=== PATIENT | male | born 1945 | race Caucasian/White ===

== ENCOUNTER 2019-09-24 19:05 | Inpatient (IN) | payer MEDICARE ==
[~2019-09-24] VITALS: Ht 182.9 cm; Wt 122.5 kg
--- NOTE | 2019-09-24 19:25 | NUR ---
pt BIB [facility] ambulance[facility] A/O x3. able to speak in complete sentences. follows command no s/s of distress respiration even and unlanored no cardiovascular distress noted SR up for safety. bed locked, lowest position. instructed to pt to call nurse for assistance monitored accordingly Will continue to monitor
--- NOTE | 2019-09-24 19:25 | NUR ---
Dr. Feldman at bedside for MSE
[2019-09-24] MEDS ORDERED: IV NORMAL SALINE 1000 ML BAG IV ONE (19:30)
[2019-09-24] MEDS ORDERED: FURO-151 PO (19:33)
[2019-09-24] MEDS ORDERED: METF-440 PO (19:33)
[2019-09-24] MEDS ORDERED: [UNRECOGNIZED DRUG - CODE] PO (19:33)
[2019-09-24] MEDS ORDERED: [UNRECOGNIZED DRUG - REMARK] (19:33)
[2019-09-24 20:04] LABS: BASOPHILS # (AUTO) 0.1 K/uL (0.0-8.0); BASOPHILS % (AUTO) 0.7 % (0.0-2.0); EOSINOPHILS # (AUTO) 0.1 K/uL (0.0-0.7); EOSINOPHILS % (AUTO) 1.6 % (0.0-7.0); HEMATOCRIT 39.2 % (36.7-47.1); HEMOGLOBIN 13.1 g/dL (12.5-16.3); LYMPHOCYTES # (AUTO) 1.3 K/uL (20.0-40.0); LYMPHOCYTES % (AUTO) 16.2 % (20.5-51.5); MEAN CORPUSCULAR HEMOGLOBIN 32.3 uug (23.8-33.4); MEAN CORPUSCULAR HGB CONC 34 g/dL (32.5-36.3); MEAN CORPUSCULAR VOLUME 96.6 fL (73.0-96.2); MONOCYTES # (AUTO) 0.8 K/uL (2.0-10.0); MONOCYTES % (AUTO) 9.8 % (0.0-11.0); NEUTROPHILS # (AUTO) 5.9 K/uL (1.8-8.9); NEUTROPHILS % (AUTO) 71.7 % (38.5-71.5); PLATELET COUNT (AUTO) 162 K/uL (152-348); RED BLOOD CELL COUNT(AUTO) 4.06 MIL/uL (4.06-5.63); WHITE BLOOD COUNT (AUTO) 8.3 K/uL (3.6-10.2)
[2019-09-24 20:13] LABS: CREATININE 0.8 mg/dL (0.6-1.3); POTASSIUM 3.5 mmol/L (3.5-5.1)
[2019-09-24 20:17] LABS: BILIRUBIN,DIRECT 0.5 mg/dL (0.0-0.2); BILIRUBIN,TOTAL 1.4 mg/dL (0.2-1.0); TOTAL PROTEIN, SERUM 5.9 g/dL (6.4-8.2)
--- NOTE | 2019-09-24 20:29 | NUR ---
pt out of ER for CT
--- NOTE | 2019-09-24 20:44 | NUR ---
pt back in ER from CT
--- NOTE | 2019-09-24 21:13 | NUR ---
Dr. Feldman on the phone with Dr. Diaz
[2019-09-24] MEDS ORDERED: DEXTROSE 50% 50 ML DISP.SYRIN IV PRN (21:15)
[2019-09-24] MEDS ORDERED: ONDANSETRON 4 MG/2 ML VIAL IV PRN (21:15)
[2019-09-24] MEDS ORDERED: MAGNESIUM HYDROXIDE 30 ML LIQUID UDC PO PRN (21:15)
[2019-09-24] MEDS ORDERED: ACETAMINOPHEN 325 MG TABLET PO PRN (21:15)
--- NOTE | 2019-09-24 21:20 | NUR ---
attempted to call for bed. no beds available. RN avionics shop supervisor aware.
--- NOTE | 2019-09-24 21:55 | NUR ---
Report given to ADELINA Gallardo
[2019-09-24] MEDS ORDERED: PIPERACILLIN SODIUM/TAZOBACTAM 3.375 G in IV DEXTROSE 5% 50 ML IV SCH (22:00)
[2019-09-24] MEDS ORDERED: VANCOMYCIN IV 2,000 MG in IV DEXTROSE 5% 500 ML IV ONE (22:15)
--- NOTE | 2019-09-24 22:51 | NUR ---
Pt. admitted to Tele Room 329B , under care of Dr. Diaz Belongs List completed. All belongings with patient. No s/s of distress
--- NOTE | 2019-09-24 23:20 | NUR ---
Admitted patient from ER with admitting diagnosis: abdominal pain and ascites. Patient arrived at 2245 through hospital bed. No SOB or distress was noted. Condition fair. No complain of pain at this time. VS: BP:122/81, VA:113, T:98.3, RR:19, O2 SAT:95% RA. Physical assessment done. Rt below the knee amputation. Non-pitting edema on right hand, left leg and foot, and scrotum. safety measures maintain, fall prevention observed. Skin assessed. open wound and skin tears noted, pictures taken, and put in the chart. placed Wound care consult. Bed in locked and low position, side rails up x2 for safety, bed alarm on. Call light and frequently using items within reach. Continue to monitor.
[2019-09-24] MEDS ORDERED: VANCOMYCIN 1000 MG VIAL ONE (23:32)
[2019-09-24] MEDS ORDERED: PIPERACILLIN/TAZOBACTAM/D5W 100 ML IV ONE (23:32)
[2019-09-24] MEDS: PIPERACILLIN SODIUM/TAZOBACTAM 3.375 G in IV DEXTROSE 5% 50 ML IV SCH (23:43)
[2019-09-25] MEDS: PIPERACILLIN SODIUM/TAZOBACTAM 3.375 G in IV DEXTROSE 5% 50 ML IV SCH (05:12)
[2019-09-25] MEDS: PANTOPRAZOLE SODIUM 40 MG TABLET.DR PO SCH (06:30)
[2019-09-25] MEDS: BLOOD SUGAR DIAGNOSTIC 1 EACH STRIP VI SCH ×4 (06:31→20:47)
[2019-09-25 08:19] VITALS: BP 135/102
[2019-09-25] MEDS ORDERED: FUROSEMIDE 20 MG/2 ML VIAL IV ONE (09:00)
--- NOTE | 2019-09-25 09:24 | NUR ---
Endorsing care to Hailey SAHU. Addendum: 09/25/19 at 0901 by JOSE ALBERTO WASHINGTON RN Patient transferred to 2nd floor for covid r/o
[2019-09-25] MEDS ORDERED: BISACODYL 10 MG SUPP.RECT RC ONE (09:30)
--- NOTE | 2019-09-25 09:30 | NUR ---
Received report from pooja SAHU. Patient is awake, alert and verbally responsive, hard of hearing. No signs of distress noted. No SOB. saturating 96% on Room Air. Afebrile. No complain of pain or discomfort. On contact and droplet Isolation for r/o covid 19. proper PPE strictly Observed. kept clean and comfortable. Will continue to monitor
[2019-09-25 11:00] VITALS: BP 97/69
--- NOTE | 2019-09-25 11:30 | NUR ---
Patient with Order for Guided Ultrasound paracentesis, consent signed by Patient.
[2019-09-25] MEDS: INSULIN REGULAR, HUMAN 300 UNIT/3 ML VIAL SQ PRN ×3 (11:52→22:12)
--- NOTE | 2019-09-25 12:01 | NUR ---
WOUND CARE CONSULT: REVIEWED CHART, ADMISSION DOCUMENTATION AND PHOTOS WHICH SHOW EDEMA (PROFOUND EDEMA TO SCROTUM), DRY THICKENED SKIN TO LOWER EXTREMITIES AND NECROTIC SACRAL WOUND, ALL PRESENT ON ADMISSION. RECOMMEND SURGICAL CONSULT. DR DUNCAN NOTIFIED OF CONSULT REQUEST. FIRST STEP LOW AIRLOSS MATTRESS ON ORDER. SKIN PROTECTION RECOMMENDATIONS DISCUSSED WITH NURSING STAFF. SACRAL WOUND PHOTO DISCUSSED WITH IN CASE MGMT. MD IN AGREEMENT WITH PLAN OF CARE. CURRENT ROXANA SCORE IS 12.
[2019-09-25] MEDS ORDERED: Z GUARD REMEDY PASTE 57 GM TUBE TOP PRN (12:15)
[2019-09-25 13:21] LABS: BASOPHILS # (AUTO) 0.1 K/uL (0.0-8.0); BASOPHILS % (AUTO) 0.8 % (0.0-2.0); EOSINOPHILS # (AUTO) 0.1 K/uL (0.0-0.7); EOSINOPHILS % (AUTO) 0.9 % (0.0-7.0); HEMATOCRIT 37.8 % (36.7-47.1); HEMOGLOBIN 12.9 g/dL (12.5-16.3); LYMPHOCYTES # (AUTO) 0.9 K/uL (20.0-40.0); LYMPHOCYTES % (AUTO) 10.5 % (20.5-51.5); MEAN CORPUSCULAR HGB CONC 34 g/dL (32.5-36.3); MEAN CORPUSCULAR VOLUME 96.3 fL (73.0-96.2); MONOCYTES # (AUTO) 0.7 K/uL (2.0-10.0); MONOCYTES % (AUTO) 7.9 % (0.0-11.0); NEUTROPHILS # (AUTO) 6.9 K/uL (1.8-8.9); NEUTROPHILS % (AUTO) 79.9 % (38.5-71.5); PLATELET COUNT (AUTO) 150 K/uL (152-348); RED BLOOD CELL COUNT(AUTO) 3.93 MIL/uL (4.06-5.63); WHITE BLOOD COUNT (AUTO) 8.6 K/uL (3.6-10.2)
[2019-09-25] MEDS: VANCOMYCIN IV 2,000 MG in IV DEXTROSE 5% 500 ML IV SCH (13:31)
--- NOTE | 2019-09-25 13:36 | NUR ---
Clinical Pharmacy Note: Vancomycin Pharmacy to Dose Subjective: To start vancomycin in this 73 y/o male for indication of "documented infection." Pt noted with elevated lactic acid and in for abdominal pain, now pending covid test. Also started zosyn Objective: weight 118kg height 182cm BMI 35.3 BUN/Scr 8/0.8 wbc 8.3 temp 97.7 2gm x 1 vanco given in ER 09/24 @ ~0100 Assessment/Plan As renal function appears stable, will start vancomycin regimen of 2gm q12h for estimated trough of 16.3, 2nd dose today at 1300. Trough ordered beofre 4th scheduled dose, due tomorrow at 1230. Will check trough when available and adjust as needed. Will follow renal function as well and adjust accordingly. Will monitor
[2019-09-25 13:41] LABS: THYROID STIMULATING HORMONE 1.746 mIU/mL (0.358-3.740)
[2019-09-25 14:10] LABS: BILIRUBIN,TOTAL 1.7 mg/dL (0.2-1.0); CREATININE 0.9 mg/dL (0.6-1.3); MAGNESIUM 1.6 mg/dL (1.8-2.4); PHOSPHOROUS 2.5 mg/dL (2.5-4.9); POTASSIUM 3.2 mmol/L (3.5-5.1); TOTAL PROTEIN, SERUM 5.6 g/dL (6.4-8.2)
[2019-09-25] MEDS: PIPERACILLIN/TAZOBACTAM/D5W 3.375 G in PREMIXED 1 EACH IV SCH ×2 (14:31→21:43)
[2019-09-25 16:00] VITALS: BP 129/77
[2019-09-25] MEDS ORDERED: LIDOCAINE 1%-EPI 1:100,000 20 ML VIAL TP ONE (16:15)
[2019-09-25] MEDS ORDERED: SILVER NITRATE APPLICATOR STICK EACH TP ONE (16:15)
--- NOTE | 2019-09-25 16:30 | NUR ---
paracentesis was done, 5L of kiel yellow fluid was drained.
[2019-09-25] MEDS ORDERED: POTASSIUM CHLORIDE 20 MEQ TAB.PRT.SR PO ONE (17:15)
[2019-09-25] MEDS: NYSTATIN POWDER 15 GM BOTTLE TOP SCH ×2 (17:25→20:49)
[2019-09-25] MEDS: SODIUM HYPOCHLORITE 0.125% 473 ML BOTTLE TP SCH (17:25)
[2019-09-25] MEDS: MAGNESIUM SULFATE/D5W 100 ML IV SCH ×2 (17:25→18:24)
--- NOTE | 2019-09-25 18:29 | NUR ---
Patient in bed, awake, alert and verbally responsive. No signs of distress noted. NO SOB. Saturating 96% on Room Air. No complain of Pain or discomfort, paracentesis was done, 5L kiel yellow fluid was drained. Magnesium 2G given for Magnesium of 1.6, and 40meq potassium given for Potassium of 3.2. All due medication given as ordered. Kept clean and comfortable. Will endorse to Oncoming Nurse.
--- NOTE | 2019-09-25 19:30 | NUR ---
Received patient in bed awake, A&Ox1-2. No SOB noted. Sinus tach on Tele monitor. s/p paracentesis in AM shift, no complications noted. IV on LFA intact and patent. Will cont to monitor
[2019-09-25 20:25] VITALS: BP 109/67
[2019-09-25] MEDS: Z GUARD REMEDY PASTE 57 GM TUBE TOP SCH (20:40)
--- NOTE | 2019-09-25 23:35 | NUR ---
Patient is negative for covid. Patient transferred to [facility] rm 316, report given to Guerrero SAHU. Patient in stable condition
--- NOTE | 2019-09-25 23:37 | NUR ---
RECEIVED PATIENT FROM 2ND FLOOR, NEGATIVE FOR COVID 19, DR. SALGUERO WAS NOTIFIED. PATIENT ALERT VERBALLY RESPONSIVE, NO SOB NO CHEST PAIN, TELE MONITOR SINUS TACHY AT THIS TIME. PATIENT HAS NO COMPLAIN OF PAIN AT THIS TIME. CONT TO MONITOR.
[2019-09-26 00:24] VITALS: BP 120/69
[2019-09-26] MEDS: VANCOMYCIN IV 2,000 MG in IV DEXTROSE 5% 500 ML IV SCH ×2 (01:06→23:00)
[2019-09-26 04:20] VITALS: BP 121/69
[2019-09-26] MEDS: PIPERACILLIN/TAZOBACTAM/D5W 3.375 G in PREMIXED 1 EACH IV SCH ×3 (05:20→21:10)
[2019-09-26] MEDS: BLOOD SUGAR DIAGNOSTIC 1 EACH STRIP VI SCH ×4 (05:22→20:52)
--- NOTE | 2019-09-26 06:46 | NUR ---
PATIENT ALERT ORIENTED, NO SOB NO CHEST PAIN SINUS RHYTHM AT THIS TIME. PATIENT HAS NO COMPLAIN OF PAIN AT THIS TIME. PATIENT HAS GENERALIZED BODY EDEMA, PATIENT ABDOMEN LEAKING WITH YELLOW COLOR FLUIDS, DRESSING WAS CHANGES, PATIENT HAS NO S/S OF ACTIVE BLEEDING, CONT TO MONITOR.
--- NOTE | 2019-09-26 08:00 | NUR ---
AWAKE ALERT TALKS AT TIMES BUT OTHER TIMES WILL NOT ANSWER WHEN SPOKEN TO HE IS REFUSING TO EAT HIS BREAKFAST AT THIS TIME BUT WILL CONTINUE TO ENCOURAGE HIM TO EAT NO S/S OF ADVERSE OR ALLERGIC REACTIONS AT THIS TIME CONTINUE ON IV ATB ORDERED.MADE COMFORTABLE WILL CONTINUE TO OBSERVE AND PROVIDE SAFE AND THERAPEUTIC ENVIRONMENT AT ALL TIMES
[2019-09-26] MEDS: INSULIN REGULAR, HUMAN 300 UNIT/3 ML VIAL SQ PRN ×4 (08:40→21:10)
[2019-09-26] MEDS: PANTOPRAZOLE SODIUM 40 MG TABLET.DR PO SCH (08:44)
[2019-09-26] MEDS: NYSTATIN POWDER 15 GM BOTTLE TOP SCH ×2 (08:46→20:52)
[2019-09-26] MEDS: SODIUM HYPOCHLORITE 0.125% 473 ML BOTTLE TP SCH (08:46)
[2019-09-26] MEDS: Z GUARD REMEDY PASTE 57 GM TUBE TOP SCH ×2 (08:47→20:53)
[2019-09-26 12:00] VITALS: BP 99/59
--- NOTE | 2019-09-26 12:29 | NUR ---
Clinical Pharmacy Note: Vancomycin Pharmacy to Dose Subjective: To continue vancomycin in this 73 y/o male for indication of "documented infection." Pt noted with elevated lactic acid and in for abdominal pain( note still draft), Also started zosyn, covid- Objective: weight 118kg height 182cm BMI 35.3 BUN/Scr 8/0.8 (09/24) wbc 8.3 (09/24) temp 99 2gm x 1 vanco given in ER 09/24 @ ~0100 Assessment/Plan As renal function appears stable, will continue vancomycin regimen of 2gm q12h for estimated trough of 16.3, 3rd dose today at 0100. Trough ordered before 4th scheduled dose(existing level was drawn prior to 3rd dose at 0100 even though Rx ordered by 4th dose. Rx re-ordered trough today at 1230 to get steady state level). Will check trough when available and adjust as needed. Will follow renal function as well and adjust accordingly. Will monitor Addendum: 09/26/19 at 1631 by GONZALEZ WILSON ADM vancomycin trough at 1230: 23.9. Ordered BMP also: BUN/Scr 8/0.9 Will resume Vancomycin tonight at 2300(estimated half life is 11.36) and draw trough by 4th dose(not ordered yet) for expected trough around 15.6.
--- NOTE | 2019-09-26 14:00 | NUR ---
MORE COOPERATIVE AT THIS TIME SOPHIA LUNCH BETTER REMAIN ON ATB ORDERED NOT IN DISTRESS AT THIS TIME
[2019-09-26 14:37] LABS: CREATININE 0.9 mg/dL (0.6-1.3); POTASSIUM 3.6 mmol/L (3.5-5.1)
[2019-09-26 16:09] VITALS: BP 92/59
--- NOTE | 2019-09-26 18:00 | NUR ---
TURNED AND REPOSITIONED ASSISTED NEEDED MADE COMFORTABLE.
[2019-09-26 20:44] VITALS: BP 107/68
--- NOTE | 2019-09-26 21:00 | NUR ---
Patient w/ n.o for US guided thoracentesis, patient is self responsible and stated he's giving consent for the procedure.
[2019-09-27 04:52] VITALS: BP 103/61
[2019-09-27] MEDS: PIPERACILLIN/TAZOBACTAM/D5W 3.375 G in PREMIXED 1 EACH IV SCH ×3 (05:25→22:19)
[2019-09-27] MEDS: PANTOPRAZOLE SODIUM 40 MG TABLET.DR PO SCH (06:15)
--- NOTE | 2019-09-27 06:40 | NUR ---
Patient slept well. No SOB. No c/o pain. Turned and repositioned. All needs attended. Will endorse accordingly
[2019-09-27] MEDS: BLOOD SUGAR DIAGNOSTIC 1 EACH STRIP VI SCH ×4 (06:49→21:44)
[2019-09-27] MEDS: INSULIN REGULAR, HUMAN 300 UNIT/3 ML VIAL SQ PRN ×4 (07:47→21:50)
--- NOTE | 2019-09-27 08:00 | NUR ---
RECEIVED PATIENT AWAKE ALERT AND AWARE DENIES PAIN OR DISCOMFORTS AT THIS TIME REMAINS ON ROOM AIR WITH NO SHORTNESS OF BREATH ASSISTED WITH REPOSITIONING Q2H CALL LIGHTS AND PERSONAL BELONGINGS ARE WITHIN EASY REACH AT THIS TIME WILL ONTINUE TO OBSERVE AND PROVIDE SAFE AND THERAPEUTIC ENVIRONMENT AT ALL TIMES
[2019-09-27] MEDS: Z GUARD REMEDY PASTE 57 GM TUBE TOP SCH ×2 (08:54→21:45)
[2019-09-27] MEDS: SODIUM HYPOCHLORITE 0.125% 473 ML BOTTLE TP SCH (08:55)
[2019-09-27] MEDS: NYSTATIN POWDER 15 GM BOTTLE TOP SCH ×2 (08:55→21:45)
[2019-09-27 12:03] VITALS: BP 104/62
--- NOTE | 2019-09-27 12:04 | NUR ---
Clinical Pharmacy Note: Vancomycin Pharmacy to Dose Subjective: To continue vancomycin in this 73 y/o male for indication of "documented infection." Pt noted with elevated lactic acid and in for abdominal pain(MD note still draft), Also started zosyn, covid- Objective: weight 118kg height 182cm BMI 35.3 BUN/Scr 8/0.8 (09/24) wbc 8.3 (09/24) temp 98.3 2gm x 1 vanco given in ER 09/24 @ ~0100 Vanco trough 09/25 @1230: 23.9 Assessment/Plan Will continue new vanco regimen of 2gm q16hr for expected trough of 15.6. Second dose due today at 1500. Will order trough before 4th scheduled dose (not ordered yet). Will continue to follow and adjust if condition were to change. Will monitor
--- NOTE | 2019-09-27 12:51 | NUR ---
NEW ORDERS RECEIVED FROM DR PEDRAZA AND CARRIED OUT AT THIS TIME.MADE COMFORTABLE WILL CONTINUE TO OBSERVE.
[2019-09-27] MEDS: VANCOMYCIN IV 2,000 MG in IV DEXTROSE 5% 500 ML IV SCH (15:46)
[2019-09-27 15:57] VITALS: BP 129/71
[2019-09-27] MEDS: METFORMIN HCL 500 MG TABLET PO SCH (17:22)
--- NOTE | 2019-09-27 17:30 | NUR ---
APPETITE IS POOR HE REMAINS ON FULL LIQUIDS ORDERED AND OFTEN TIMES WILL DRINK ONLY HIS GLUCERNA ENCOURAGED TO EAT MUCH POSSIBLE AND HE EXPRESSED UNDERSTANDING.
--- NOTE | 2019-09-27 18:00 | NUR ---
AWAKE RESTING REMAIN ON ATB ORDERED WITH NO ADVERSE OR ALLERGIC REACTIONS AT THIS TIME MADE COMFORTABLE WILL CONTINUE TO OBSERVE.
[2019-09-27 20:00] VITALS: BP 124/74
[2019-09-28] MEDS: PIPERACILLIN/TAZOBACTAM/D5W 3.375 G in PREMIXED 1 EACH IV SCH ×3 (05:44→22:38)
[2019-09-28 06:51] LABS: BASOPHILS # (AUTO) 0.1 K/uL (0.0-8.0); BASOPHILS % (AUTO) 0.7 % (0.0-2.0); EOSINOPHILS # (AUTO) 0.1 K/uL (0.0-0.7); EOSINOPHILS % (AUTO) 1.3 % (0.0-7.0); HEMATOCRIT 36.4 % (36.7-47.1); HEMOGLOBIN 12.5 g/dL (12.5-16.3); MEAN CORPUSCULAR HGB CONC 34 g/dL (32.5-36.3); MEAN CORPUSCULAR VOLUME 96.1 fL (73.0-96.2); MONOCYTES # (AUTO) 0.9 K/uL (2.0-10.0); MONOCYTES % (AUTO) 10.1 % (0.0-11.0); NEUTROPHILS # (AUTO) 6.5 K/uL (1.8-8.9); NEUTROPHILS % (AUTO) 75.9 % (38.5-71.5); PLATELET COUNT (AUTO) 120 K/uL (152-348); RED BLOOD CELL COUNT(AUTO) 3.79 MIL/uL (4.06-5.63); WHITE BLOOD COUNT (AUTO) 8.6 K/uL (3.6-10.2)
[2019-09-28] MEDS: VANCOMYCIN IV 2,000 MG in IV DEXTROSE 5% 500 ML IV SCH ×2 (07:00→09:38)
[2019-09-28 07:06] LABS: BILIRUBIN,TOTAL 1.4 mg/dL (0.2-1.0); CREATININE 0.8 mg/dL (0.6-1.3); MAGNESIUM 2.5 mg/dL (1.8-2.4); POTASSIUM 3.5 mmol/L (3.5-5.1); TOTAL PROTEIN, SERUM 5.2 g/dL (6.4-8.2)
[2019-09-28] MEDS: PANTOPRAZOLE SODIUM 40 MG TABLET.DR PO SCH (07:16)
[2019-09-28] MEDS: BLOOD SUGAR DIAGNOSTIC 1 EACH STRIP VI SCH ×4 (07:18→21:16)
[2019-09-28 07:36] VITALS: BP 108/61
--- NOTE | 2019-09-28 09:19 | NUR ---
Clinical Pharmacy Note: Vancomycin Pharmacy to Dose Subjective: To continue vancomycin in this 73 y/o male for indication of "documented infection." Pt noted with elevated lactic acid and in for abdominal pain(MD note still draft), Also started zosyn, covid- Objective: weight 118kg height 182cm BMI 35.3 BUN/Scr 14/0.8 wbc 8.6 temp 98.5 Vanco trough 09/25 @1230: 23.9 Assessment/Plan Will continue same dose of vanco regimen of 2gm [id number] for today. RN held 2nd dose due today at 0700. Rescheduled dose as 1st dose for today at 0800 (RN not yet given it, informed Rn to give the dose. Will re-schedule 2nd dose after RN documents admin for 1st dose). Will order trough before 4th scheduled dose (not ordered yet). Will continue to follow and adjust if condition were to change. Will monitor
[2019-09-28] MEDS: METFORMIN HCL 500 MG TABLET PO SCH ×2 (09:44→17:06)
[2019-09-28] MEDS: NYSTATIN POWDER 15 GM BOTTLE TOP SCH ×2 (09:47→21:11)
[2019-09-28] MEDS: Z GUARD REMEDY PASTE 57 GM TUBE TOP SCH ×2 (09:48→21:10)
[2019-09-28] MEDS: SODIUM HYPOCHLORITE 0.125% 473 ML BOTTLE TP SCH (09:49)
--- NOTE | 2019-09-28 11:10 | NUR ---
Spoke to ADELINA Oconnell. Asked her to order PT/PTT/INR and please have Pt sign thoracentesis consent or have tow MD to sign consent if pt unable to sign.
[2019-09-28] MEDS: INSULIN REGULAR, HUMAN 300 UNIT/3 ML VIAL SQ PRN ×2 (11:50→21:19)
[2019-09-28 12:01] VITALS: BP 111/60
[2019-09-28 15:51] VITALS: BP 101/63
[2019-09-28 20:00] VITALS: BP 118/72
--- NOTE | 2019-09-28 20:00 | NUR ---
RECEIVED PATIENT ASLEEP IN BED. EASILY AROUSABLE. A/O X2, BUT FORGETFUL AT TIMES. DENIES PAIN OR DISCOMFORT. NO RESP. DISTRESS NOTED. VSS. NEW IV HEPLOCK STARTED TO LEFT WRIST #22 GAUGE. NO RESP. DISTRESS NOTED. ON AIR MATTRESS. BED ALARM ON. CALL LIGHT IN REACH. ALL NEEDS ATTENDED. WILL CONTINUE TO MONITOR AND ASSESS.
[2019-09-29] MEDS: VANCOMYCIN IV 2,000 MG in IV DEXTROSE 5% 500 ML IV SCH ×2 (01:42→17:57)
[2019-09-29 04:00] VITALS: BP_SYST 114; BP_SYST 128; BP_DIAS 62; BP_DIAS 69
--- NOTE | 2019-09-29 05:31 | NUR ---
PATIENT ASLEEP IN BED. SLEPT WELL. NO S/S OF PAIN OR DISCOMFORT NOTED. VS WNL. BED ALARM ON. CALL LIGHT IN REACH. ALL NEEDS ATTENDED. WILL CONTINUE TO MONITOR AND ASSESS.
[2019-09-29] MEDS: PIPERACILLIN/TAZOBACTAM/D5W 3.375 G in PREMIXED 1 EACH IV SCH ×2 (05:39→14:19)
[2019-09-29] MEDS: PANTOPRAZOLE SODIUM 40 MG TABLET.DR PO SCH (06:04)
[2019-09-29] MEDS: BLOOD SUGAR DIAGNOSTIC 1 EACH STRIP VI SCH ×4 (06:33→21:35)
--- NOTE | 2019-09-29 07:20 | NUR ---
Received patient sleeping in bed. No acute distress noted. Bed in lowest position, side rails up x2, call light within reach. will continue to monitor.
[2019-09-29] MEDS: METFORMIN HCL 500 MG TABLET PO SCH ×2 (08:35→17:57)
[2019-09-29] MEDS: NYSTATIN POWDER 15 GM BOTTLE TOP SCH ×2 (08:35→21:39)
[2019-09-29] MEDS: SODIUM HYPOCHLORITE 0.125% 473 ML BOTTLE TP SCH (08:35)
[2019-09-29] MEDS: INSULIN REGULAR, HUMAN 300 UNIT/3 ML VIAL SQ PRN ×4 (08:36→21:39)
[2019-09-29] MEDS: Z GUARD REMEDY PASTE 57 GM TUBE TOP SCH ×2 (08:37→21:39)
--- NOTE | 2019-09-29 09:17 | NUR ---
Clinical Pharmacy Note: Vancomycin Pharmacy to Dose Subjective: To continue vancomycin in this 73 y/o male for indication of "documented infection- per MD note -Likely left lower lobe PNA and early sepsis POA. Objective: weight 118kg height 182cm BMI 35.3 BUN/Scr 14/0.8 (09/27) wbc 8.6 (09/27) temp 98.6 Vanco trough 09/25 @1230: 23.9 Assessment/Plan Will continue same dose of vanco regimen of 2gm [id number] for today. 3rd dose due today at 1730. Will order trough before 4th scheduled dose (ordered for 09/29 at 0900). Pharmacy will review the level in am & adjust the dose if needed. Will monitor
[2019-09-29 12:09] VITALS: BP 110/56
[2019-09-29 15:21] VITALS: BP 100/65
[2019-09-29] MEDS ORDERED: HYDROCODONE/APAP 5-325MG TABLET PO PRN (18:15)
--- NOTE | 2019-09-29 18:20 | NUR ---
Patient rested throughout day. No acute distress noted. Sacral wound debridement performed by Mary SPARROW.Patient denies pain and discomfort. safety measures provided.Bed in lowest position, side rails up x2, call light within reach. Will endorse to oncoming nurse.
[2019-09-29 20:55] VITALS: BP 90/60
[2019-09-29] MEDS: CEFEPIME HCL 1 G in IV DEXTROSE 5% 50 ML IV SCH (21:39)
[2019-09-29] MEDS: MORPHINE SULFATE 2 MG/1 ML DISP.SYRIN IV PRN (22:37)
[2019-09-30 03:52] VITALS: BP 111/70
[2019-09-30 06:23] LABS: BASOPHILS # (AUTO) 0.1 K/uL (0.0-8.0); BASOPHILS % (AUTO) 0.5 % (0.0-2.0); EOSINOPHILS # (AUTO) 0.3 K/uL (0.0-0.7); EOSINOPHILS % (AUTO) 2.1 % (0.0-7.0); HEMATOCRIT 38.6 % (36.7-47.1); HEMOGLOBIN 13.2 g/dL (12.5-16.3); LYMPHOCYTES # (AUTO) 1.3 K/uL (20.0-40.0); LYMPHOCYTES % (AUTO) 10.1 % (20.5-51.5); MEAN CORPUSCULAR HEMOGLOBIN 32.7 uug (23.8-33.4); MEAN CORPUSCULAR HGB CONC 34 g/dL (32.5-36.3); MEAN CORPUSCULAR VOLUME 95.9 fL (73.0-96.2); MONOCYTES # (AUTO) 1.3 K/uL (2.0-10.0); NEUTROPHILS # (AUTO) 10.1 K/uL (1.8-8.9); NEUTROPHILS % (AUTO) 77.3 % (38.5-71.5); PLATELET COUNT (AUTO) 130 K/uL (152-348); RED BLOOD CELL COUNT(AUTO) 4.03 MIL/uL (4.06-5.63); WHITE BLOOD COUNT (AUTO) 13.1 K/uL (3.6-10.2)
[2019-09-30] MEDS: PANTOPRAZOLE SODIUM 40 MG TABLET.DR PO SCH (06:37)
[2019-09-30 06:43] LABS: CARBON DIOXIDE 28 mmol/L (21-32); CHLORIDE 96 mmol/L (98-107); CREATININE 1.6 mg/dL (0.6-1.3); GLUCOSE 141 mg/dL (74-106); MAGNESIUM 2.2 mg/dL (1.8-2.4); PHOSPHOROUS 3.4 mg/dL (2.5-4.9); POTASSIUM 3.8 mmol/L (3.5-5.1); UREA NITROGEN, BLOOD 21 mg/dL (7-18)
[2019-09-30] MEDS: BLOOD SUGAR DIAGNOSTIC 1 EACH STRIP VI SCH ×4 (06:44→20:26)
--- NOTE | 2019-09-30 06:45 | NUR ---
No acute events overnight, pt recieved one time dose of morphine d/t complaints of pain during turning, cleaning, dressing change and picture documentation. Dressing on wounds done, unable to take daily weight, bed not working correctly. All wounds documented and pictures in chart
[2019-09-30] MEDS: METFORMIN HCL 500 MG TABLET PO SCH ×2 (08:29→16:57)
[2019-09-30] MEDS: Z GUARD REMEDY PASTE 57 GM TUBE TOP SCH ×2 (08:33→20:19)
[2019-09-30] MEDS: NYSTATIN POWDER 15 GM BOTTLE TOP SCH ×2 (08:36→20:19)
[2019-09-30] MEDS: CEFEPIME HCL 1 G in IV DEXTROSE 5% 50 ML IV SCH ×2 (08:47→20:18)
[2019-09-30] MEDS: INSULIN REGULAR, HUMAN 300 UNIT/3 ML VIAL SQ PRN ×4 (08:48→20:33)
[2019-09-30 10:56] VITALS: BP 104/63
--- NOTE | 2019-09-30 11:23 | NUR ---
Clinical Pharmacy Note: Vancomycin Pharmacy to Dose Subjective: To continue vancomycin in this 73 y/o male for indication of "documented infection(per ID note sacral decub, S/P debridement, LLE cellulitis, Pneumonia), On Cefepime also. Objective: weight 118kg height 182cm BMI 35.3 BUN/Scr 21/1.6 wbc 13.1 temp 97.4 Vanco trough /9 @1230: 23.9 Vanco trough / @0900:46.6 Assessment/Plan Since trough is over 20 and renal function is unstable, will dc Vancomycin routine dosing (2g q16h) and start dosing by random level for now. Next random is on order for tomorrow at 0600 with am labs. Will follow the level for further dosing.
[2019-09-30 15:47] VITALS: BP 107/61
--- NOTE | 2019-09-30 18:58 | NUR ---
Pt received, assessed, denies pain, no SOB or acute distress evident. Pt had BMx1, clean and dry now. Wound and skin care provided as ordered. Left arm 22 mag IV, intact, and patent. All comfort and safety needs met throughout the shift. Call light placed within reach. Will continue to monitor and endorse to night cleaner.
--- NOTE | 2019-09-30 19:35 | NUR ---
Awake during initial rounds. Calm and quiet. Patient was requesting if he can see her today because he's going home tomorrow and learned that the just called 30 minutes ago. Denies any pain/discomforts at this time. IV RH intact and patent with IVF infusing TKO. No redness/swelling noted on site. Safety measures and fall precaution maintained. Continue care as planned.
[2019-09-30 20:13] VITALS: BP 110/73
[2019-09-30] MEDS: IV NS 1000 ML 1,000 ML IV PRN (20:30)
[2019-10-01] MEDS: MORPHINE SULFATE 2 MG/1 ML DISP.SYRIN IV PRN (00:12)
[2019-10-01 05:02] VITALS: BP 107/62
--- NOTE | 2019-10-01 05:25 | NUR ---
Shift End Report: VS stable. Slept well. Medicated once for pain with help. No further complaint presented. No s/s of hypo/hyperglycemia. No fall/injury reported. All needs attended and met. No significant event reported all night. Continue current rehab plan of care.
[2019-10-01] MEDS: BLOOD SUGAR DIAGNOSTIC 1 EACH STRIP VI SCH ×4 (05:52→21:30)
[2019-10-01] MEDS: PANTOPRAZOLE SODIUM 40 MG TABLET.DR PO SCH (05:52)
[2019-10-01 08:56] LABS: BASOPHILS # (AUTO) 0.1 K/uL (0.0-8.0); BASOPHILS % (AUTO) 0.5 % (0.0-2.0); EOSINOPHILS # (AUTO) 0.3 K/uL (0.0-0.7); EOSINOPHILS % (AUTO) 2.3 % (0.0-7.0); HEMATOCRIT 38.4 % (36.7-47.1); LYMPHOCYTES # (AUTO) 1.2 K/uL (20.0-40.0); LYMPHOCYTES % (AUTO) 8.8 % (20.5-51.5); MEAN CORPUSCULAR HEMOGLOBIN 32.8 uug (23.8-33.4); MEAN CORPUSCULAR HGB CONC 34 g/dL (32.5-36.3); MEAN CORPUSCULAR VOLUME 96.7 fL (73.0-96.2); MONOCYTES # (AUTO) 1.4 K/uL (2.0-10.0); MONOCYTES % (AUTO) 10.2 % (0.0-11.0); NEUTROPHILS # (AUTO) 10.5 K/uL (1.8-8.9); NEUTROPHILS % (AUTO) 78.2 % (38.5-71.5); PLATELET COUNT (AUTO) 140 K/uL (152-348); RED BLOOD CELL COUNT(AUTO) 3.97 MIL/uL (4.06-5.63); WHITE BLOOD COUNT (AUTO) 13.4 K/uL (3.6-10.2)
[2019-10-01] MEDS: CEFEPIME HCL 1 G in IV DEXTROSE 5% 50 ML IV SCH ×2 (09:07→21:26)
[2019-10-01] MEDS: METFORMIN HCL 500 MG TABLET PO SCH ×2 (09:07→17:26)
[2019-10-01] MEDS: INSULIN REGULAR, HUMAN 300 UNIT/3 ML VIAL SQ PRN ×3 (09:08→21:32)
[2019-10-01] MEDS: NYSTATIN POWDER 15 GM BOTTLE TOP SCH ×2 (09:10→21:27)
[2019-10-01] MEDS: Z GUARD REMEDY PASTE 57 GM TUBE TOP SCH ×2 (09:10→21:27)
[2019-10-01 09:14] LABS: ALANINE AMINOTRANSFERASE 10 U/L (16-63); ALKALINE PHOSPHATASE 99 U/L (50-136); ASPARTATE AMINOTRANSFERASE 23 U/L (15-37); BILIRUBIN,TOTAL 1.9 mg/dL (0.2-1.0); CARBON DIOXIDE 26 mmol/L (21-32); CHLORIDE 96 mmol/L (98-107); CREATINE KINASE, TOTAL 7 U/L (39-308); CREATININE 1.6 mg/dL (0.6-1.3); GLUCOSE 151 mg/dL (74-106); MAGNESIUM 2.8 mg/dL (1.8-2.4); PHOSPHOROUS 3.6 mg/dL (2.5-4.9); POTASSIUM 4.1 mmol/L (3.5-5.1); TOTAL PROTEIN, SERUM 5.5 g/dL (6.4-8.2); UREA NITROGEN, BLOOD 23 mg/dL (7-18); VANCOMYCIN,RANDOM 38.6 ug/mL (18.0-26.0)
[2019-10-01 11:32] VITALS: BP 115/69
--- NOTE | 2019-10-01 12:57 | NUR ---
Clinical Pharmacy Note: Vancomycin Pharmacy to Dose Subjective: To continue vancomycin in this 73 y/o male for indication of "documented infection(per ID note sacral decub, S/P debridement, LLE cellulitis, Pneumonia), On Cefepime also. Objective: weight 118kg height 182cm BMI 35.3 BUN/Scr 23/1.6 wbc 13.4 temp 98 Vanco trough / @1230: 23.9 Vanco trough 09/29 @0900:46.6 Vanco random today at 0840: 38.6 Assessment/Plan As random still remains high, will give no further dose today and continue to follow renal function for further random levels. Will dose per random level as appropriate until renal function recovers. Will check Scr in am and order next random accordingly based on clearance. Will follow
[2019-10-01] MEDS: IV NS 1000 ML 1,000 ML IV PRN (13:25)
[2019-10-01 15:52] VITALS: BP 114/70
[2019-10-01 20:53] VITALS: BP 130/80
[2019-10-02] MEDS: IV NS 1000 ML 1,000 ML IV PRN ×2 (02:31→21:50)
[2019-10-02 04:29] VITALS: BP 121/81
[2019-10-02] MEDS: PANTOPRAZOLE SODIUM 40 MG TABLET.DR PO SCH (06:03)
[2019-10-02 06:08] LABS: BASOPHILS # (AUTO) 0.1 K/uL (0.0-8.0); BASOPHILS % (AUTO) 0.6 % (0.0-2.0); EOSINOPHILS # (AUTO) 0.2 K/uL (0.0-0.7); EOSINOPHILS % (AUTO) 1.8 % (0.0-7.0); HEMATOCRIT 37.5 % (36.7-47.1); LYMPHOCYTES # (AUTO) 1.1 K/uL (20.0-40.0); LYMPHOCYTES % (AUTO) 8.9 % (20.5-51.5); MEAN CORPUSCULAR HEMOGLOBIN 33.2 uug (23.8-33.4); MEAN CORPUSCULAR HGB CONC 35 g/dL (32.5-36.3); MEAN CORPUSCULAR VOLUME 95.9 fL (73.0-96.2); MONOCYTES # (AUTO) 1.2 K/uL (2.0-10.0); MONOCYTES % (AUTO) 10.2 % (0.0-11.0); NEUTROPHILS # (AUTO) 9.4 K/uL (1.8-8.9); NEUTROPHILS % (AUTO) 78.5 % (38.5-71.5); PLATELET COUNT (AUTO) 130 K/uL (152-348); RED BLOOD CELL COUNT(AUTO) 3.91 MIL/uL (4.06-5.63); WHITE BLOOD COUNT (AUTO) 11.9 K/uL (3.6-10.2)
[2019-10-02 06:30] LABS: ALANINE AMINOTRANSFERASE 9 U/L (16-63); ALKALINE PHOSPHATASE 94 U/L (50-136); ASPARTATE AMINOTRANSFERASE 23 U/L (15-37); BILIRUBIN,TOTAL 1.6 mg/dL (0.2-1.0); CARBON DIOXIDE 26 mmol/L (21-32); CHLORIDE 97 mmol/L (98-107); CREATININE 1.5 mg/dL (0.6-1.3); GLUCOSE 133 mg/dL (74-106); MAGNESIUM 2.3 mg/dL (1.8-2.4); PHOSPHOROUS 3.5 mg/dL (2.5-4.9); TOTAL PROTEIN, SERUM 5.5 g/dL (6.4-8.2); UREA NITROGEN, BLOOD 25 mg/dL (7-18)
[2019-10-02] MEDS: BLOOD SUGAR DIAGNOSTIC 1 EACH STRIP VI SCH ×4 (06:41→20:32)
--- NOTE | 2019-10-02 06:42 | NUR ---
Patient slept well throughout shift. No SOB noted. No c/o pain. Turned and repositioned. All needs attended. Will endorse accordingly
[2019-10-02] MEDS: METFORMIN HCL 500 MG TABLET PO SCH ×2 (08:55→17:57)
[2019-10-02] MEDS: Z GUARD REMEDY PASTE 57 GM TUBE TOP SCH ×2 (08:55→20:27)
[2019-10-02] MEDS: NYSTATIN POWDER 15 GM BOTTLE TOP SCH ×2 (08:55→20:27)
[2019-10-02] MEDS: CEFEPIME HCL 1 G in IV DEXTROSE 5% 50 ML IV SCH ×2 (08:55→20:27)
--- NOTE | 2019-10-02 09:55 | NUR ---
Clinical Pharmacy Note: Vancomycin Pharmacy to Dose Subjective: To continue vancomycin in this 73 y/o male for indication of "documented infection(per ID note sacral decub, S/P debridement, LLE cellulitis, Pneumonia), On Cefepime also. Objective: weight 118kg height 182cm BMI 35.3 BUN/Scr 25/1.5 wbc 11.9 temp 98.1 Vanco trough / @1230: 23.9 Vanco trough 09/29 @0900:46.6 Vanco random 09/30 at 0840: 38.6 Vanco random 15 with am labs: 31.6 Assessment/Plan As random still remains high, will give no further dose today and continue to follow renal function for further random levels. Will dose per random level as appropriate until renal function recovers. Will check random level tomorrow with am labs. Will follow
[2019-10-02 11:35] VITALS: BP 117/74
[2019-10-02 12:06] LABS: A/G RATIO 0.8 (0.7-1.7); ALBUMIN 2.2 g/dL (2.9-4.4); ALPHA-1-GLOBULIN 0.3 g/dL (0.0-0.4); ALPHA-2-GLOBULIN 0.6 g/dL (0.4-1.0); BETA GLOBULIN 0.9 g/dL (0.7-1.3); GAMMA GLOBULIN 1.1 g/dL (0.4-1.8); GLOBULIN, TOTAL 2.9 g/dL (2.2-3.9); M-SPIKE Not Observed g/dL (Not Observed)
[2019-10-02] MEDS: INSULIN REGULAR, HUMAN 300 UNIT/3 ML VIAL SQ PRN ×2 (12:20→17:58)
[2019-10-02 16:01] VITALS: BP 127/78
--- NOTE | 2019-10-02 19:20 | NUR ---
Received patient lying in bed. AAOX2. In no acute distress. Denies any pain or SOB. IV site on left wrist intact and patent. IVF infusing. Dressing n right FA and left leg dry and intact. Reposition for comfort. Safety measure initiated and call smith within reached.
[2019-10-02 20:47] VITALS: BP 130/92
[2019-10-03 05:03] VITALS: BP 116/71
--- NOTE | 2019-10-03 06:13 | NUR ---
Slept well last night. AAOX2. In no acute distress. Denies any pain or SOB. IV site on left wrist intact and patent. IVF infusing. No adverse reaction noted from IB ABX. Dressing on right FA changed and left leg dressing remains dry and intact. Reposition for comfort. Safety measure maintained and call smith within reached.
[2019-10-03] MEDS: PANTOPRAZOLE SODIUM 40 MG TABLET.DR PO SCH (06:16)
[2019-10-03] MEDS: BLOOD SUGAR DIAGNOSTIC 1 EACH STRIP VI SCH ×5 (06:34→20:47)
--- NOTE | 2019-10-03 07:36 | NUR ---
Received patient in bed, AOx2, awake. Denies sob or chest pain. no signs of distress. All needs met. Safety and fall prevention in place. call light in reach. Bed in low and locked position. Will continue to monitor.
[2019-10-03] MEDS: METFORMIN HCL 500 MG TABLET PO SCH ×2 (08:47→17:34)
[2019-10-03] MEDS: Z GUARD REMEDY PASTE 57 GM TUBE TOP SCH ×2 (08:48→20:46)
[2019-10-03] MEDS: CEFEPIME HCL 1 G in IV DEXTROSE 5% 50 ML IV SCH ×2 (08:48→20:36)
[2019-10-03] MEDS: NYSTATIN POWDER 15 GM BOTTLE TOP SCH ×2 (08:48→20:46)
--- NOTE | 2019-10-03 10:45 | NUR ---
Clinical Pharmacy Note: Vancomycin Pharmacy to Dose Subjective: To continue vancomycin in this 73 y/o male for indication of "documented infection(per ID note sacral decub, S/P debridement, LLE cellulitis, Pneumonia), On Cefepime also. Objective: weight 118kg height 182cm BMI 35.3 BUN/Scr 25/1.5 (10/01) wbc 11.9 (10/01) temp 97.9 Vanco trough 09/25 @1230: 23.9 Vanco trough 09/29 @0900:46.6 Vanco random 09/30 at 0840: 38.6 Vanco random 10/01 with am labs: 31.6 Vanco random 10/02 with am labs: 25.4 Assessment/Plan As random still remains high, will give no further dose today and continue to follow renal function for further random levels. Will dose per random level as appropriate until renal function recovers. Will check random level tomorrow with am labs. Will follow
[2019-10-03 11:11] VITALS: BP 106/61
[2019-10-03] MEDS: IV NS 1000 ML 1,000 ML IV PRN (11:24)
[2019-10-03] MEDS: INSULIN REGULAR, HUMAN 300 UNIT/3 ML VIAL SQ PRN ×2 (12:23→20:48)
[2019-10-03 15:55] VITALS: BP 108/75
--- NOTE | 2019-10-03 18:08 | NUR ---
Patient in bed, AOx2. Denies sob or chest pain. No signs of distress. All needs met throughout the shift. Safety and fall prevention in place. call light in reach. Bed in low and locked position. Will report to oncoming nurse.
[2019-10-03 20:22] VITALS: BP 110/66
[2019-10-04] MEDS: IV NS 1000 ML 1,000 ML IV PRN ×2 (00:31→17:10)
[2019-10-04] MEDS: MORPHINE SULFATE 2 MG/1 ML DISP.SYRIN IV PRN ×2 (03:29→20:22)
[2019-10-04 05:07] VITALS: BP 106/70
[2019-10-04] MEDS: PANTOPRAZOLE SODIUM 40 MG TABLET.DR PO SCH (06:06)
[2019-10-04] MEDS: BLOOD SUGAR DIAGNOSTIC 1 EACH STRIP VI SCH ×4 (07:04→20:29)
[2019-10-04 08:00] VITALS: BP 134/83
--- NOTE | 2019-10-04 08:00 | NUR ---
Pt alert and oriented x 3. Pt has anasarca swelling of all extremities. Right stump noted pt denies any phantom pain. Plan of care for skin integrity implemented. Dressing on left left intact and right arm. PT is in no acute distress.
[2019-10-04] MEDS: METFORMIN HCL 500 MG TABLET PO SCH ×2 (08:55→17:20)
[2019-10-04] MEDS: Z GUARD REMEDY PASTE 57 GM TUBE TOP SCH ×2 (08:56→20:23)
[2019-10-04] MEDS: NYSTATIN POWDER 15 GM BOTTLE TOP SCH ×2 (08:56→20:22)
[2019-10-04] MEDS: CEFEPIME HCL 1 G in IV DEXTROSE 5% 50 ML IV SCH (08:57)
[2019-10-04 12:00] VITALS: BP 136/51
[2019-10-04] MEDS: INSULIN REGULAR, HUMAN 300 UNIT/3 ML VIAL SQ PRN ×3 (13:08→20:30)
[2019-10-04 16:00] VITALS: BP 134/82
--- NOTE | 2019-10-04 16:00 | NUR ---
Pt has dry scaly skin PRODUCTION QUALITY ANALYST Aakash approved lachydrin lotion to be applied.
[2019-10-04] MEDS: AMMONIUM LACTATE 12% LOTION 225 GM BOTTLE TP SCH (17:00)
--- NOTE | 2019-10-04 18:30 | NUR ---
Pt is in no acute distress. Call light is within reach.
--- NOTE | 2019-10-04 19:30 | NUR ---
Received patient awake and alert in bed, screaming for help. When asking patient what's wrong he says "i dont know, i'm just uncomfortable" tried repositioning, but patient still stating he is uncomfortable. patient is not able to specify where he is uncomfortable, offered pain medication and patient agreed said "yes that will help me" IVF running on the left wrist no s/s of infection or infiltration noted. Patient noted with generalized anasarca, right BKA, on KCL mattress. Safety measures initiated. bed is low and locked, call light within reach. Will continue to monitor.
[2019-10-04 20:18] VITALS: BP 128/80
--- NOTE | 2019-10-05 00:10 | NUR ---
Noted patient with SOB and cough/wheezing, and noted crackles in the lungs with hx of CHF, endorsed to professor of environmental engineering Dr. Gray and received orders for STAT chest XR, breathing treatment Q4H PRN, and to hold fluids. Patient was desaturating in the low 80s, put patient on 4L NC and is now saturating at 94-95%.
[2019-10-05 04:20] VITALS: BP 101/64
--- NOTE | 2019-10-05 04:43 | NUR ---
Patient still noted with slight wheezing and coughing, saturating at 95% on 4L NC. Patient turned and repositioned, wound care done.
[2019-10-05] MEDS: PANTOPRAZOLE SODIUM 40 MG TABLET.DR PO SCH (06:21)
[2019-10-05] MEDS: BLOOD SUGAR DIAGNOSTIC 1 EACH STRIP VI SCH ×4 (06:46→20:35)
[2019-10-05 08:00] VITALS: BP 120/69
[2019-10-05] MEDS ORDERED: FUROSEMIDE 20 MG/2 ML VIAL IV ONE (08:30)
[2019-10-05] MEDS: METFORMIN HCL 500 MG TABLET PO SCH ×2 (08:31→16:38)
[2019-10-05] MEDS: Z GUARD REMEDY PASTE 57 GM TUBE TOP SCH ×2 (08:32→20:36)
[2019-10-05] MEDS: NYSTATIN POWDER 15 GM BOTTLE TOP SCH ×2 (08:32→20:36)
[2019-10-05] MEDS: INSULIN REGULAR, HUMAN 300 UNIT/3 ML VIAL SQ PRN ×3 (08:40→21:57)
[2019-10-05] MEDS: AMMONIUM LACTATE 12% LOTION 225 GM BOTTLE TP SCH ×2 (09:00→15:35)
--- NOTE | 2019-10-05 09:00 | NUR ---
Placed pt on Aspiration and fall precaution. IVF held as ordered. IV on left had #22 HL intact and flushing well without resistance. HOB elevated. Pt on 4L on N/c with sat of 96%. Call light is within reach.
--- NOTE | 2019-10-05 11:00 | NUR ---
Pt is planned for Discharge today. However will notify GARRY Cerdaal that pt has worsening condition. Pt is has increased wheezing and crackles. Lasix given earlier as ordered but unable to measure output secondary to no f/c and pt is in continent with wet towels. attempted to deep suction pt but unsuccessful only got scant amount of brownish thick liquid. RT attempted and got about 200cc of brownish thick liquid which looks like his glucerna. Kept pt NPO awaiting speech therapy . PT put on tele to be observed better with sinus tach of 107. Pt more calm after deep suctioning from RT. Will continue to monitor patient.
--- NOTE | 2019-10-05 12:00 | NUR ---
Spoke with DR real. Discharge canceled on pt. Got ordered for tele status and lasix 20 mg iv BID. Awaiting swallow eval from . Kept Pt NPO for lunch.
[2019-10-05] MEDS: ALBUTEROL SULFATE 2.5 MG/3 ML NEBU NEB PRN ×2 (12:36→17:05)
[2019-10-05] MEDS: IPRATROPIUM BROMIDE 0.5 MG/2.5 ML NEBU NEB PRN ×2 (12:36→17:05)
--- NOTE | 2019-10-05 15:00 | NUR ---
ST recommends pt to be NPO. Notified ldr rn and put sign on door.
[2019-10-05 16:27] VITALS: BP 102/60
--- NOTE | 2019-10-05 16:30 | NUR ---
RT deep suctioned patient again got thick brownish drainage. Pt much calmer and breathing easier than in am. Intervention effective.
[2019-10-05] MEDS: FUROSEMIDE 20 MG/2 ML VIAL IV SCH (16:37)
--- NOTE | 2019-10-05 18:40 | NUR ---
Pt comfortable. TELE pt remains tachy @108 no ectopy. PT had wet chucks during change with the [employer] TEACHER. Call light is within reach.
--- NOTE | 2019-10-05 20:01 | NUR ---
Received patient resting in bed, easily to arouse but lethargic. No signs of acute distress noted. No complaints of pain. Patient is on 4L NC saturating 95-96% will suction PRN. No wheezing or coughing noted at this time. Patient is NPO per swallow evaluation. IVF still on hold. Heplock on the left wrist is intact and patent. HOB up at 45 degrees at all times. Safety measures initiated. Bed is low and locked, call light within reach. Will continue to monitor.
[2019-10-05 20:04] VITALS: BP 123/71
--- NOTE | 2019-10-05 20:40 | NUR ---
Patient is sinus tachy on the monitor up to 110. Blood sugar is 139 tonight, not going to cover due to NPO and IVF being held, will contact Dr. Finn regarding if still want to hold IVF. Patient noted with slight wheezing.
[2019-10-06] VITALS: BP 122/74
[2019-10-06] MEDS: ALBUTEROL SULFATE 2.5 MG/3 ML NEBU NEB PRN ×2 (00:12→05:53)
[2019-10-06] MEDS: IPRATROPIUM BROMIDE 0.5 MG/2.5 ML NEBU NEB PRN ×2 (00:12→05:53)
[2019-10-06 04:04] VITALS: BP 120/72
[2019-10-06] MEDS: PANTOPRAZOLE SODIUM 40 MG TABLET.DR PO SCH (06:15)
[2019-10-06] MEDS: BLOOD SUGAR DIAGNOSTIC 1 EACH STRIP VI SCH ×4 (06:38→20:40)
--- NOTE | 2019-10-06 06:39 | NUR ---
Breathing treatment given x2, patient a little more awake asking for water but explained to patient he is NPO right now due to high risk of aspiration. Patient was also deep suction by RT, but only little output due to patient fighting. ABG ordered. Will endorse to next shift.
[2019-10-06] MEDS: METFORMIN HCL 500 MG TABLET PO SCH (08:00)
--- NOTE | 2019-10-06 08:00 | NUR ---
Suctioned pt for comfort. lasix given as ordered. leblanc cath inserted to monitor output. pt on nc 4 liter with 90% o2 sat.
[2019-10-06] MEDS: FUROSEMIDE 20 MG/2 ML VIAL IV SCH ×2 (08:07→17:32)
[2019-10-06] MEDS: NYSTATIN POWDER 15 GM BOTTLE TOP SCH ×2 (08:08→20:31)
[2019-10-06] MEDS: Z GUARD REMEDY PASTE 57 GM TUBE TOP SCH ×2 (08:08→20:31)
[2019-10-06 08:10] LABS: ABG BASE EXCESS -8.1 mmol/L; ABG HCO3 19.7 mmol/L; ABG PCO2 48.8 mmHg (35.0-45.0); ABG PH 7.223 (7.350-7.450); ABG PO2 52.2 mmHg (75.0-100.0); ABG SITE LEFT RADIAL; ABG TOTAL HEMOGLOBIN 14.4 G/dL (13.5-18.0); COHb 1.4 % (0.5-1.5); MetHb 0.3 % (0.0-1.5); O2Hb 83.1 % (94.0-97.0); VENT MODE Nasal Cannula
[2019-10-06] MEDS: AMMONIUM LACTATE 12% LOTION 225 GM BOTTLE TP SCH ×2 (08:11→17:32)
--- NOTE | 2019-10-06 09:00 | NUR ---
Dr monroe cardio here to see patient. OK to start f/c. PT weeping on abd clear drainage. Noted JVD on right neck. repositioned pt for comfort. Dressing changed. PT has anasarca and swell throughout his body.
--- NOTE | 2019-10-06 10:00 | NUR ---
Dr correa here to see patient. Notified of abg result. Per dr correa he will order for thoracentesis on patient. Pt put on 10 liter mask with o2 sat of 94% and labored breathing. Dr correa aware.
[2019-10-06 10:14] LABS: BASOPHILS % (AUTO) 0.1 % (0.0-2.0); EOSINOPHILS % (AUTO) 0.1 % (0.0-7.0); HEMATOCRIT 41.1 % (36.7-47.1); HEMOGLOBIN 13.6 g/dL (12.5-16.3); LYMPHOCYTES # (AUTO) 0.8 K/uL (20.0-40.0); LYMPHOCYTES % (AUTO) 3.2 % (20.5-51.5); MEAN CORPUSCULAR HEMOGLOBIN 32.8 uug (23.8-33.4); MEAN CORPUSCULAR HGB CONC 33 g/dL (32.5-36.3); MEAN CORPUSCULAR VOLUME 98.8 fL (73.0-96.2); MONOCYTES # (AUTO) 1.3 K/uL (2.0-10.0); MONOCYTES % (AUTO) 5.4 % (0.0-11.0); NEUTROPHILS # (AUTO) 22.2 K/uL (1.8-8.9); NEUTROPHILS % (AUTO) 91.2 % (38.5-71.5); RED BLOOD CELL COUNT(AUTO) 4.16 MIL/uL (4.06-5.63)
[2019-10-06 10:28] LABS: PLATELET COUNT (AUTO) 207 K/uL (152-348); WHITE BLOOD COUNT (AUTO) 24.4 K/uL (3.6-10.2)
[2019-10-06 10:39] LABS: LYMPHOCYTES % (MANUAL) 2 % (20-40); MONOCYTES % (MANUAL) 5 % (2-10); NEUTROPHILS % (MANUAL) 93 % (42-75)
[2019-10-06 10:41] LABS: CARBON DIOXIDE 25 mmol/L (21-32); CHLORIDE 99 mmol/L (98-107); CREATININE 2.2 mg/dL (0.6-1.3); GLUCOSE 166 mg/dL (74-106); POTASSIUM 5.4 mmol/L (3.5-5.1); UREA NITROGEN, BLOOD 43 mg/dL (7-18)
[2019-10-06 10:47] LABS: ALANINE AMINOTRANSFERASE 15 U/L (16-63); ALKALINE PHOSPHATASE 117 U/L (50-136); ASPARTATE AMINOTRANSFERASE 28 U/L (15-37); BILIRUBIN,TOTAL 1.5 mg/dL (0.2-1.0); MAGNESIUM 2.9 mg/dL (1.8-2.4)
[2019-10-06 11:50] VITALS: BP 109/62
--- NOTE | 2019-10-06 13:00 | NUR ---
Spoke with ESPERANZA FRYE re pt for thoracentesis. Ashley states that the test will be done tomorrow and that pt doesn't have any recent coagulation test. Notified esperanza frye i can order coags as a stat so pt can be done today. Call light is within reach.
[2019-10-06] MEDS: INSULIN REGULAR, HUMAN 300 UNIT/3 ML VIAL SQ PRN ×2 (13:12→20:45)
[2019-10-06 14:01] LABS: *CREATININE,URINE 146.1 mg/dL (30-125); *URINE TOTAL PROTEIN RANDOM 158.6 mg/dL (<150/24HR)
[2019-10-06 14:19] LABS: *BILIRUBIN,URIN NEGATIVE (NEGATIVE); *BLOOD, URINE 1+ (NEGATIVE); *CLARITY,URINE SLIGHTLY CLOUDY (CLEAR); *COLOR,URINE YELLOW (YELLOW); *KETONES,URINE NEGATIVE (NEGATIVE); *UROBILINOGEN,URINE 0.2 E.U./dl (NORMAL); LEUKOCYTE ESTERASE ,URINE NEGATIVE (NEGATIVE); NITRITE, URINE NEGATIVE (NEGATIVE); UGLUCOSE NEGATIVE (NEGATIVE)
--- NOTE | 2019-10-06 14:30 | NUR ---
Dr Diaz notified that thoracentesis will be done in am. Pt currently on 10L Mask with sat of 94% with labored breathing. Suctioned by rt the second with thick mucus. Suction effective pt more comfortable. Call light is within reach.
[2019-10-06 14:46] LABS: SQUAMOUS EPITHELIAL CELL,UR FEW /HPF (NONE SEEN)
[2019-10-06 14:47] LABS: MUCUS,URINE MODERATE /LPF (0-FEW); URINE AMORPHOUS URATE MODERATE /HPF
--- NOTE | 2019-10-06 14:56 | NUR ---
Spoke with ROSY Ch [phone] OA. Consent received for thoracentesi and paracentesis.
[2019-10-06 16:00] VITALS: BP 115/65
--- NOTE | 2019-10-06 18:30 | NUR ---
Pt on 10 liter n/c with 02 sat of 94% Sinus tach 110. Pt resp is shallow with rate of 23. Suctioned pt again and repositioned pt for comfort. noted f/c didnt drain much from lasix. bladder scan done noted 350cc at bladder scanner. Help from another RN Theresa on attempt to advance f/c but unsuccessful. Call light is within reach.
[2019-10-06] MEDS ORDERED: MEROPENEM 500 MG in IV NORMAL SALINE 50 ML IV SCH (20:00)
[2019-10-06 20:06] VITALS: BP 92/60
--- NOTE | 2019-10-06 20:14 | NUR ---
Received patient on 10L face mask saturating at 94% Sinus tachy on the monitor at 108. Noted with shallow breathing. Noted increased edema throughout the body. Dressings are intact. Shin cath is intact, but not draining well will try to advance. Heplock on the left wrist is intact and patent. Safety measures initiated. Bed is low and locked, call light within reach. Will continue to monitor.
[2019-10-06] MEDS: MEROPENEM 500 MG in IV NORMAL SALINE 50 ML IV SCH (20:30)
--- NOTE | 2019-10-06 21:40 | NUR ---
Endorsed to Dr. Diaz about patient condition. On 10L saturating at 92-93% Received orders of ABG in the AM and code status is now DNR/DNI. Endorsed to charge nurse.
--- NOTE | 2019-10-06 21:44 | NUR ---
Shin catheter was removed, tried to advance but no output noted and lasix was given during morning shift.
--- NOTE | 2019-10-06 23:59 | NUR ---
RT deep suction patient, noted with brown/red secretions. Patient still saturating at 92%-95% on 10L mask.
[2019-10-07] VITALS (66 sets, daily range): BP systolic 57–139; BP diastolic 34–91
[2019-10-07] MEDS ORDERED: ALBUMIN HUMAN 25% 50 ML IV ONE ×2 (00:30→04:30)
--- NOTE | 2019-10-07 00:32 | NUR ---
Patient noted with BP 87/45 HR 105, notified on-call Dr. Soni. Received orders for Albumin 25% x1 bag.
--- NOTE | 2019-10-07 04:35 | NUR ---
After Albumin, BP went up to the 90s, but is now back down in the 80s, contacted Dr. Soni, ordered to give another dose of Albumin
[2019-10-07] MEDS: PANTOPRAZOLE SODIUM 40 MG TABLET.DR PO SCH (06:07)
[2019-10-07 06:09] LABS: ABG BASE EXCESS -10.4 mmol/L; ABG HCO3 22.5 mmol/L; ABG PCO2 92.2 mmHg (35.0-45.0); ABG PH 7.005 (7.350-7.450); ABG PO2 61.4 mmHg (75.0-100.0); ABG SITE LEFT RADIAL; ABG TOTAL HEMOGLOBIN 13.1 G/dL (13.5-18.0); COHb 1.7 % (0.5-1.5); MetHb 0.3 % (0.0-1.5); O2Hb 87.2 % (94.0-97.0)
[2019-10-07 06:14] LABS: BASOPHILS % (AUTO) 0.1 % (0.0-2.0); EOSINOPHILS % (AUTO) 0.1 % (0.0-7.0); HEMATOCRIT 38.1 % (36.7-47.1); HEMOGLOBIN 12.5 g/dL (12.5-16.3); LYMPHOCYTES # (AUTO) 0.9 K/uL (20.0-40.0); LYMPHOCYTES % (AUTO) 4.4 % (20.5-51.5); MEAN CORPUSCULAR HEMOGLOBIN 32.9 uug (23.8-33.4); MEAN CORPUSCULAR HGB CONC 33 g/dL (32.5-36.3); MEAN CORPUSCULAR VOLUME 100.1 fL (73.0-96.2); MONOCYTES # (AUTO) 1.5 K/uL (2.0-10.0); MONOCYTES % (AUTO) 6.8 % (0.0-11.0); NEUTROPHILS # (AUTO) 18.9 K/uL (1.8-8.9); NEUTROPHILS % (AUTO) 88.6 % (38.5-71.5); PLATELET COUNT (AUTO) 209 K/uL (152-348); RED BLOOD CELL COUNT(AUTO) 3.81 MIL/uL (4.06-5.63); WHITE BLOOD COUNT (AUTO) 21.4 K/uL (3.6-10.2)
[2019-10-07 06:30] LABS: ALANINE AMINOTRANSFERASE 18 U/L (16-63); ALKALINE PHOSPHATASE 114 U/L (50-136); ASPARTATE AMINOTRANSFERASE 25 U/L (15-37); BILIRUBIN,TOTAL 1.4 mg/dL (0.2-1.0); CARBON DIOXIDE 28 mmol/L (21-32); CHLORIDE 100 mmol/L (98-107); CREATININE 2.6 mg/dL (0.6-1.3); GLUCOSE 133 mg/dL (74-106); MAGNESIUM 2.7 mg/dL (1.8-2.4); PHOSPHOROUS 7.4 mg/dL (2.5-4.9); POTASSIUM 5.9 mmol/L (3.5-5.1); TOTAL PROTEIN, SERUM 6.3 g/dL (6.4-8.2); UREA NITROGEN, BLOOD 50 mg/dL (7-18)
[2019-10-07] MEDS ORDERED: BUMETANIDE INJ 6 MG in IV DEXTROSE 5% 36 ML IV ONE ×2 (06:30→20:00)
[2019-10-07] MEDS: BLOOD SUGAR DIAGNOSTIC 1 EACH STRIP VI SCH ×4 (06:47→20:56)
--- NOTE | 2019-10-07 06:52 | NUR ---
Received ABG results from RT Chet, Dr. Singh and charge nurse Amelia jeong, ordered Bumex and Albumin x4 bags. Dr Singh also waiting to speak with Dr. Diaz to see what plan is. Patient needs dialysis and possible BiPaP. RT deep suctioned patient again noted with red secretions. After suctioning patient remained 87-88% O2 at 10L mask, changed to non-rebreather. Saturating at 94% on 15L.
--- NOTE | 2019-10-07 07:30 | NUR ---
Received report from shift superintendent nurse, patient in bed obtunded, BP noted to be Hypotensive, HR Tachycardia at 103. Discussed with Dr. Singh, orders received, and administration notified that patient needs to be transferred to ICU.
--- NOTE | 2019-10-07 07:38 | NUR ---
Reported ABG to Dr. Fleming. Ordered STAT BiPaP. Settings at 15/5 RR 18 and 02 titrate >92% Dr. Singh spoke to Dr. Diaz, patient is being transferred to CCU.
[2019-10-07] MEDS: ALBUMIN HUMAN 25% 25 GM in PREMIXED 1 EACH IV SCH ×4 (07:42→23:30)
[2019-10-07] MEDS ORDERED: NOREPINEPHRINE BITARTRATE 8 MG in IV NORMAL SALINE 242 ML IV PRN (07:45)
[2019-10-07] MEDS ORDERED: PHENYLEPHRINE IV 50 MG in IV NORMAL SALINE 245 ML IV PRN ×2 (08:00→09:30)
--- NOTE | 2019-10-07 08:00 | NUR ---
RT called to pt room to place pt on BIPAP per . setting are 15/5, RR18, keep SpO2 >=92. pt maya BIPAP well at this time. will cont to monitor.
--- NOTE | 2019-10-07 08:22 | NUR ---
Patient started on Neosynephrine, continuous monitoring by Director Noland.
[2019-10-07] MEDS: FUROSEMIDE 20 MG/2 ML VIAL IV SCH ×2 (09:00→17:00)
[2019-10-07] MEDS: NYSTATIN POWDER 15 GM BOTTLE TOP SCH ×2 (09:00→20:34)
[2019-10-07] MEDS: AMMONIUM LACTATE 12% LOTION 225 GM BOTTLE TP SCH ×2 (09:00→17:06)
[2019-10-07] MEDS: Z GUARD REMEDY PASTE 57 GM TUBE TOP SCH ×2 (09:00→20:34)
[2019-10-07] MEDS: NOREPINEPHRINE BITARTRATE 8 MG in IV NORMAL SALINE 242 ML IV PRN ×2 (09:02→18:45)
--- NOTE | 2019-10-07 09:15 | NUR ---
Patient transferred to ccu bed 2 with RT and Electronic Warfare Linguist.
[2019-10-07] MEDS ORDERED: DOPamine IV DRIP 400 MG/250ML 250 ML IV PRN (09:45)
[2019-10-07] MEDS ORDERED: IV NORMAL SALINE 500 ML IV ONE (11:00)
[2019-10-07] MEDS: MEROPENEM 500 MG in IV NORMAL SALINE 50 ML IV SCH ×2 (11:55→19:37)
--- NOTE | 2019-10-07 11:57 | NUR ---
Attempt at picc line insertion unsuccessful, two midline's were inserted, one in left and one in right.
[2019-10-07 12:12] LABS: ABG BASE EXCESS -9.5 mmol/L; ABG HCO3 20.6 mmol/L; ABG PCO2 64.6 mmHg (35.0-45.0); ABG PH 7.121 (7.350-7.450); ABG PO2 87.2 mmHg (75.0-100.0); ABG SITE LEFT RADIAL; ABG TOTAL HEMOGLOBIN 13.2 G/dL (13.5-18.0); COHb 1.4 % (0.5-1.5); MetHb 0.3 % (0.0-1.5); O2Hb 95.2 % (94.0-97.0); VENT MODE BIPAP
--- NOTE | 2019-10-07 12:15 | NUR ---
Patient seen by Dr. Arthur.
[2019-10-07] MEDS: PHENYLEPHRINE IV 100 MG in IV NORMAL SALINE 240 ML IV PRN ×3 (12:29→21:09)
--- NOTE | 2019-10-07 14:05 | NUR ---
Dr Angel at bedside performed thoracentesis, xray revealed small pneumothorax.
--- NOTE | 2019-10-07 14:08 | NUR ---
Contacted Dr. Marcano and Dr. Fleming's office notified, awaiting call back.
--- NOTE | 2019-10-07 14:14 | NUR ---
Dr Angel and Dr. Marcano messaging revealed that continuation with paracentesis should proceed, and 3-4 L of fluid can be removed but not more than 5L.
--- NOTE | 2019-10-07 15:11 | NUR ---
Fluid sent to laboratory with cytology forms. 1100 thoracentesis fluid removed and 5000ml paracentesis fluid removed.
--- NOTE | 2019-10-07 19:15 | NUR ---
Patient continues to be on neosynephrine 3mcg/kg/min and levophed 0.12 mcg/kg/min, Patient is on Bipap with fio2 80%, Shin continues to have no urine output throughout shift which was discussed with Dr. Marcano. Air mattress to be delivered this evening as current air mattress is not working. Patient had a complete bed bath and wound care performed. Report given to security shift supervisor nurse.
--- NOTE | 2019-10-07 20:00 | NUR ---
RECEIVED PT LETHARGIC. OPEN HIS EYES TO ANY STIMULI. ON BIPAP W/ SETTINGS OF I-10/E-5, RATE-18, FIO2-80% W/ O2 SAT OF 96%. ON LEVOPHED DRIP @ 0.14MCQ/KG/MIN , NEOSYNEPHRINE DRIP @ 3MCQ/KG/KG.ON CHERIE MIDLINE. BUMEX DRIP @ 10CC/HR ON FREDDIE MIDLINE. REPOSITIONED ON HIS SIDE W/ HOB DOWN.SUCTIONED ORALLY W/ THICK MIN. MUCOUS PALE YELLOWISH IN COLOR.
--- NOTE | 2019-10-07 22:00 | NUR ---
REPOSITIONED TO HIS OPPOSITE SIDE W/ HOB DOWN. . LEVOPHED DRIP INCREASED.
--- NOTE | 2019-10-07 23:15 | NUR ---
O2 SAT 85-86%, INCREASED FIO2 TO 100%.
[2019-10-08] VITALS (12 sets, daily range): BP systolic 0–88; BP diastolic 0–53
--- NOTE | 2019-10-08 | NUR ---
LEVOPHED DRIP INCREASED, LOW BP.
[2019-10-08] MEDS ORDERED: NOREPINEPHRINE BITARTRATE 4 MG/4 ML VIAL IV ONE (01:09)
[2019-10-08] MEDS: NOREPINEPHRINE BITARTRATE 8 MG in IV NORMAL SALINE 242 ML IV PRN ×2 (01:17→01:54)
[2019-10-08] MEDS: PHENYLEPHRINE IV 100 MG in IV NORMAL SALINE 240 ML IV PRN (02:06)
--- NOTE | 2019-10-08 02:30 | NUR ---
HEART RATE SLOWS DOWN-44/MIN. RESP. IS AGONAL. NO BP .
--- NOTE | 2019-10-08 02:45 | NUR ---
PATIENT APNEIC FOR 5 MINUTES . PUPILS DILATED AND FIXED , NO AUDIBLE HEART TONES , NO BREATH SOUNDS FOR 1 MINUTE , NO PALPABLE PULSE FOR ONE MINUTE , NO CORNEAL REFLEXES , PATIENT PRONOUNCED AT 0245 , PHYSICIAN NOTIFIED , DPA NOTIFIED , YENY GALLEGOS CALLED AND LEFT A MESSAGE , [facility] CALLED
--- NOTE | 2019-10-08 02:50 | NUR ---
TELEPHONE CONSENT TO RELEASE THE REMAINS GIVEN BY ROSY ABREU.
--- NOTE | 2019-10-08 03:00 | NUR ---
POST MORTEM CARE DONE.
--- NOTE | 2019-10-08 04:25 | NUR ---
PT. BODY WAS PICKED BY [employer].
== END 2019-10-08 04:25 | disposition expired | DRG 853 ==
LOC: ER 19:10 → TELE3 22:05 → TELE 09-25 09:24 → TELE3 09-25 23:40 → MEDSURG3 09-26 11:30 → TELE3 10-05 20:05 → CCU 10-07 09:00
PROVIDERS: ADMIT Internal Medicine; ATTEND Internal Medicine
PROC: 0W9G3ZZ Drainage of Peritoneal Cavity, Percutaneous Approach (ICD-10-PCS; principal; 2019-09-25)
PROC: 0W9B3ZZ Drainage of Left Pleural Cavity, Percutaneous Approach (ICD-10-PCS; 2019-09-28)
PROC: 0KBP0ZZ Excision of Left Hip Muscle, Open Approach (ICD-10-PCS; 2019-09-29)
PROC: 0KBN0ZZ Excision of Right Hip Muscle, Open Approach (ICD-10-PCS; 2019-09-29)
PROC: 0W9B3ZZ Drainage of Left Pleural Cavity, Percutaneous Approach (ICD-10-PCS; 2019-10-07)
PROC: 0W9G3ZZ Drainage of Peritoneal Cavity, Percutaneous Approach (ICD-10-PCS; 2019-10-07)
PROC: 05HY33Z Insertion of Infusion Device into Upper Vein, Percutaneous Approach (ICD-10-PCS; 2019-10-07)
DX: A41.9 Sepsis, unspecified organism (principal); L89.154 Pressure ulcer of sacral region, stage 4; J18.9 Pneumonia, unspecified organism; G92 Toxic encephalopathy; E43 Unspecified severe protein-calorie malnutrition; J96.01 Acute respiratory failure with hypoxia; J96.02 Acute respiratory failure with hypercapnia; N17.0 Acute kidney failure with tubular necrosis; R65.21 Severe sepsis with septic shock; I50.31 Acute diastolic (congestive) heart failure; J91.8 Pleural effusion in other conditions classified elsewhere; E87.1 Hypo-osmolality and hyponatremia; L03.116 Cellulitis of left lower limb; D68.69 Other thrombophilia; E87.4 Mixed disorder of acid-base balance; Z66 Do not resuscitate; L30.4 Erythema intertrigo; K70.31 Alcoholic cirrhosis of liver with ascites; Z87.891 Personal history of nicotine dependence; E11.40 Type 2 diabetes mellitus with diabetic neuropathy, unspecified; E87.6 Hypokalemia; K80.20 Calculus of gallbladder without cholecystitis without obstruction; I11.0 Hypertensive heart disease with heart failure; R23.4 Changes in skin texture; E11.51 Type 2 diabetes mellitus with diabetic peripheral angiopathy without gangrene; Z89.511 Acquired absence of right leg below knee; R16.1 Splenomegaly, not elsewhere classified; I35.0 Nonrheumatic aortic (valve) stenosis; F03.90 Unspecified dementia, unspecified severity, without behavioral disturbance, psychotic disturbance, mood disturbance, and anxiety; M19.90 Unspecified osteoarthritis, unspecified site; I87.8 Other specified disorders of veins; Z68.36 Body mass index [BMI] 36.0-36.9, adult; Z79.84 Long term (current) use of oral hypoglycemic drugs
CPT/HCPCS: 32555; 36415; 36600; 70030-TC; 71045; 83605; 83615; 83690; 83735; 83970; 83986; 84100; 84155; 84156; 84165; 84300; 84443; 85025; 85610; 85730; 87040; 87070; 87077; 87086; 87205; 87400; 93005; 93307; 94640; 94660; 94664; A4217; A4663; C1758; G0378; J0692; J1265; J1815; J1940; J2185; J2270; J2370; J2405; J2543; J3370; J3475; J3490; J3590; J7030; J7040; J7050; J7060; P9047; U0003-CS